=== PATIENT | male | born 1940 | race Caucasian/White ===

== ENCOUNTER 2018-03-06 12:34 | Observation (INO) | payer OTHER ==
[2018-03-06] MEDS ORDERED: HYDROmorphONE/DILAUDID 2 MG/ML INJ IVP ONE (13:03)
--- NOTE | 2018-03-06 13:06 | EDPHY ---
H & P Stated Complaint: back surg 01/12 developed increasing pain at site of surgery Time Seen by Provider: 03/06/18 12:57 HPI/ROS: CHIEF COMPLAINT: Low back pain HISTORY OF PRESENT ILLNESS: Patient is a 77-year-old man with a history of L2- 3 spinal fusion 8 weeks ago with [facility] Dr. Jewell. The patient had recovered well and had minimal pain until when he had sudden increase in pain. It is primarily in his low back at the incision site. No radiation. No weakness or numbness. No bowel or bladder abnormalities. No paresthesias. No fevers. He denies recent trauma. He was told to double his Robaxin and Percocet. He continued to have pain. He was seen at the clinic today by the PA he recommended he come to the ER for x-rays. Severity: Severe Modifying factors: Some improvement with pain medication REVIEW OF SYSTEMS: Constitutional: denies: chills, fever, recent illness, recent injury EENTM: denies: blurred vision, double vision, nose congestion Respiratory: denies: cough, shortness of breath Cardiac: denies: chest pain, irregular heart rate, lightheadedness, palpitations Gastrointestinal/Abdominal: denies: abdominal pain, diarrhea, nausea, vomiting, blood streaked stools Genitourinary: denies: dysuria, frequency, hematuria, pain Musculoskeletal: denies: joint pain, muscle pain Skin: denies: lesions, rash, jaundice, bruising Neurological: denies: headache, numbness, paresthesia, tingling, dizziness, weakness Hematologic/Lymphatic: denies: blood clots, easy bleeding, easy bruising Immunologic/allergic: denies: HIV/AIDS, transplant 10 systems reviewed and negative except as noted EXAM: GENERAL: Well-appearing, well-nourished and in no acute distress. HEAD: Atraumatic, normocephalic. EYES: Pupils equal round and reactive to light, extraocular movements intact, sclera anicteric, conjunctiva are normal. ENT: TMs normal, nares patent, oropharynx clear without exudates. Moist mucous membranes. NECK: Normal range of motion, supple without lymphadenopathy or JVD. LUNGS: Breath sounds clear to auscultation bilaterally and equal. No wheezes rales or rhonchi. HEART: Regular rate and rhythm without murmurs, rubs or gallops. ABDOMEN: Soft, nontender, normoactive bowel sounds. No guarding, no rebound. No masses appreciated. BACK: Pain at the lower aspect incision, no swelling. No erythema. No dehiscence. No tenderness. No CVA tenderness, no spinal tenderness, step-offs or deformities EXTREMITIES: Normal range of motion, no pitting or edema. No clubbing or cyanosis. NEUROLOGICAL: Cranial nerves II through XII grossly intact. Normal speech, normal gait. 5/5 strength, normal movement in all extremities, normal sensation , normal reflexes PSYCH: Normal mood, normal affect. SKIN: Warm, dry, normal turgor, no visible rashes or lesions. Source: Patient Exam Limitations: No limitations - Personal History Current Tetanus Diphtheria and Acellular Pertussis (TDAP): Yes - Medical/Surgical History Hx Asthma: No Hx Chronic Respiratory Disease: No Hx Diabetes: No Hx Cardiac Disease: No Hx Renal Disease: No Hx Cirrhosis: No Hx Alcoholism: No Hx HIV/AIDS: No Hx Splenectomy or Spleen Trauma: No Other PMH: back surg gout - Family History Significant Family History: No pertinent family hx - Social History Smoking Status: Never smoked Alcohol Use: Sober Drug Use: None Constitutional: Initial Vital Signs Temperature (C) 36.8 C 03/06/18 12:49 Heart Rate 87 03/06/18 12:49 Respiratory Rate 18 03/06/18 12:49 Blood Pressure 153/93 H 03/06/18 12:49 O2 Sat (%) 92 03/06/18 12:49 O2 Delivery Mode Room Air Allergies/Adverse Reactions: bacitracin [From Neosporin ([id number])] Allergy (Verified 03/06/18 12:47) neomycin [From Neosporin ([id number])] Allergy (Verified 03/06/18 12:47) oxycodone Allergy (Verified 03/06/18 12:47) Penicillins Allergy (Verified 03/06/18 12:47) polymyxin B [From Neosporin ([id number])] Allergy (Verified 03/06/18 12:47) Home Medications: Medication Instructions Recorded Allopurinol [Allopurinol 300 MG 300 mg PO DAILY 03/06/18 (RX)] Calcium Carbonate [Oyster Shell 500 mg PO DAILY 03/06/18 Calcium 500 mg (*)] Hydrocodone/Acetaminophen [Vicodin 0.5 tab PO Q4H PRN 03/06/18 Hp 10-300 mg Tablet] Levothyroxine [Synthroid 150 mcg 150 mcg PO DAILY 03/06/18 (*)] Methocarbamol [Robaxin 750 mg (*)] 750 mg PO Q8H PRN 03/06/18 Tolterodine Tartrate [Tolterodine 4 mg PO BID 03/06/18 Tartrate ER] Medical Decision Making - Diagnostics Imaging: Discussed imaging studies w/ will call order clerk Radiologist ED Course/Re-evaluation: 1:50 p.m. the patient's x-rays reassuring. He states that he is feeling better after Dilaudid. His pain does not radiate. No weakness or numbness. His told me that couple of weeks ago he did have a wound infection that was treated successfully with antibiotics. I have paged Neurosurgery to discuss further. 3:00 p.m. Care transferred to [facility]. We are awaiting MRI results and neurosurgery consultation. Differential Diagnosis: Partial list of the Differential diagnosis considered include but were not limited to; low back pain, postoperative complication, hematoma, infection and although unlikely based on the history and physical exam, I also considered fracture, foreign body, hardware failure. - Data Points Laboratory Results: Laboratory Results 03/06/18 13:27 03/06/18 13:27 Medications Given: Acetaminophen (Tylenol) 1,000 mg PO Q8HRS LALI Stop: 09/02/18 21:59 Last Admin: 03/07/18 06:33 Dose: 1,000 mg Diazepam (Valium) 5 mg PO Q6HRS PRN PRN Reason: Anxiety, Able to Take PO Stop: 09/02/18 16:13 Last Admin: 03/07/18 03:49 Dose: 5 mg Hydromorphone HCl (Dilaudid) 2 mg PO Q4HRS PRN PRN Reason: Pain, Severe Able to Take PO Stop: 03/16/18 16:12 Last Admin: 03/07/18 03:49 Dose: 2 mg Hydromorphone HCl (Dilaudid) 0.2 mg IVP Q2HRS PRN PRN Reason: Pain, Severe Unable to Take PO Stop: 03/16/18 16:16 Last Admin: 03/06/18 16:29 Dose: 0.2 mg Methocarbamol (Robaxin) 750 mg PO TID LALI Stop: 09/02/18 21:59 Last Admin: 03/06/18 20:06 Dose: 750 mg Senna/Docusate Sodium (Senokot-S) 1 - 2 tab PO BID LALI PRN Reason: Protocol Stop: 09/02/18 20:59 Last Admin: 03/06/18 20:06 Dose: 2 tab Discontinued Medications Hydromorphone HCl (Dilaudid) 1 mg IVP EDNOW ONE Stop: 03/06/18 13:04 Last Admin: 03/06/18 13:32 Dose: 1 mg Sodium Chloride (Ns) 1,000 mls @ 0 mls/hr IV EDNOW ONE; Wide Open PRN Reason: Protocol Stop: 03/06/18 13:49 Last Admin: 03/06/18 14:07 Dose: 1,000 mls Departure - Departure Disposition: [facility] Acute Clinical Impression: Lumbar compression fracture Qualifiers: Encounter type: initial encounter Lumbar vertebra fracture level: L1 Fracture type: closed Qualified Code(s): S32.010A - Wedge compression fracture of first lumbar vertebra, initial encounter for closed fracture Condition: Fair
[2018-03-06 13:42] LABS: PLATELET COUNT 236 10^3/uL (150-400)
[2018-03-06] MEDS ORDERED: NS 1,000 ML IV ONE (13:48)
[2018-03-06 13:49] LABS: INR 1.01 (0.83-1.16); PROTIME(PATIENT) 13.5 SEC (12.0-15.0)
[2018-03-06] MEDS ORDERED: HYDROmorphONE/DILAUDID 1 MG/ML INJ IVP PRN (16:17)
--- NOTE | 2018-03-06 17:10 | GHP ---
DATE OF ADMISSION: 03/06/2018 REASON FOR ADMISSION: Intractable low back pain. HOSPITAL COURSE/HISTORY/MAJOR MEDICAL FINDINGS: The patient is a 77-year-old gentleman who recently underwent an L2-L4 posterior fusion with L2-3 decompression and fusion by Dr. Mason on 01/12/2018. Postoperatively, the patient had been doing well and progressing with therapies until last week when he developed acute low back pain that was intractable to his home [place] and Robaxin. He did call the answering service late on Tuesday night and increased his pain medications, as well as tried heat and ice and these did not relieve his pain. He denies any new leg weakness, any numbness, tingling, or pain. He states that his pre-surgery leg symptoms have resolved. The back pain did improve slightly on Tuesday; however, he is now at the point where he is requiring his rolling walker to move even short distances. He denies any loss of bowel or bladder control. REVIEW OF SYSTEMS: Review of systems is negative other than what is stated in the HPI. Please see for pertinent negatives and pertinent positives. PAST MEDICAL HISTORY: Significant for gout. PAST SURGICAL HISTORY: Significant for right knee replacement, left knee replacement, shoulder surgery, and prior back surgery in 2004. FAMILY HISTORY: Negative for any strokes, aneurysms, or spinal issues. SOCIAL HISTORY: The patient is a former smoker. He quit smoking in 1988. He is and has 1 child. ALLERGIES: To penicillins, oxycodone, and Neosporin. HOME MEDICATIONS: Include [place] 10/325 mg 1 to 2 tablets q.4-6 hours p.r.n. pain, Robaxin 750 mg 1 p.o. q.8 hours p.r.n. pain, allopurinol, indomethacin, levothyroxine, and tolterodine tartrate. PHYSICAL EXAM: VITAL SIGNS: BP 143/84, heart rate is 103, respiratory rate is 92% on room air, temp is 36.8. GENERAL: The patient is in no acute distress, though he is uncomfortable appearing. NEUROLOGIC: The patient is a 5/5 and equal in his bilateral upper and bilateral lower extremities, including his deltoids, triceps, biceps, wrist flexors, extensors, interossei, intrinsic compliance coordinator , iliopsoas, hamstrings, quadriceps, plantar flexion, dorsiflexion, EHL. His sensation is intact in bilateral upper and bilateral lower extremities. SKIN: His incision is clean, dry, and intact. There is no scabbing and is well healed. DIAGNOSTIC REVIEW: Patient underwent a lumbar spine x-ray, which demonstrated intact hardware without any evidence of failure. There is a questionable compression fracture above the patient's surgery at L1. A lumbar MRI was ordered to further evaluate his L1 compression fracture and it appeared to be stable and without any acute edema. ASSESSMENT/PLAN: The patient is a 77-year-old gentleman who recently underwent an L2-L4 posterior fusion with TLIF and decompression at L2-3 who started having new intractable low back pain last week. They have attempted to optimize his pain management in the ER; however, he continues to have ongoing pain. Based on this, we will admit him to the hospital for further observation and pain control. We will do q.4 hours neuro checks. If there is any change in neurologic or motor exam, please notify Neurosurgery. The patient was seen both by Dr. Mason and myself today. /[id number]/MODL MTDD
[2018-03-06] MEDS ORDERED: POLYETHYLENE GLYCOL 3350 17 GM PKT PO PRN (18:14)
[2018-03-06] MEDS ORDERED: LACTULOSE 20 GM/30 ML UDCUP PO PRN (18:14)
[2018-03-06] MEDS ORDERED: MAGNESIUM HYDROXIDE 30 ML UDCUP PO PRN (18:14)
[2018-03-06] MEDS ORDERED: BISACODYL 10 MG SUPP PR PRN (18:14)
[2018-03-06] MEDS: SENNOSIDES/DOCUSATE SODIUM TAB PO SCH (20:06)
[2018-03-06] MEDS: METHOCARBAMOL 750 MG TAB PO SCH (20:06)
[2018-03-06] MEDS: ACETAMINOPHEN 500 MG TAB PO SCH (20:06)
[2018-03-06] MEDS: HYDROmorphONE/DILAUDID 2 MG TAB PO PRN (20:12)
[2018-03-07] MEDS: HYDROmorphONE/DILAUDID 2 MG TAB PO PRN ×5 (03:49→21:16)
[2018-03-07] MEDS: DIAZEPAM 5 MG TAB PO PRN ×2 (03:49→14:27)
[2018-03-07] MEDS: ACETAMINOPHEN 500 MG TAB PO SCH ×3 (06:33→21:15)
[2018-03-07] MEDS: METHOCARBAMOL 750 MG TAB PO SCH ×3 (08:52→21:15)
[2018-03-07] MEDS: SENNOSIDES/DOCUSATE SODIUM TAB PO SCH ×2 (08:54→21:15)
--- NOTE | 2018-03-07 09:48 | NEUSURGPN ---
Assessment/Plan: 77y/o male with acute exacerbation of low back pain and muscle spasms -Pain controlled improved with medication regiment this morning. Will trial this morning and have patient see PT. -Xrays and lumbar MRI negative for new fx or concerning stenosis -Optimize pain management -Discussed with Dr. Mason -Please notify NS with any change in neuro/motor exam Subjective: back/spasms/leg pain improved Objective: NAD A&Ox3 MAEx 4 5/5 and equal in BUE and BLE - Physician Discussed Patient with : [facility] Physical Exam - Vitals, I&O, Labs I and O 03/06/18 03/07/18 03/08/18 05:59 05:59 05:59 Intake Total 1000 300 Output Total 1750 250 Balance -750 50 Weight 120.2 kg Intake: Oral (ml) 300 IV Infused (ml) 1000 Output: Urine (ml) 1750 250 Urinal 1750 250 Other: Intake Quantity Yes Sufficient Number of Voids Toilet 1 1 Urinal 2 Number of Stools Toilet 1 1 Urinal 1 Vital Signs Temp Pulse Resp BP Pulse Ox 36.4 C 75 18 144/83 H 92 03/07/18 07:27 03/07/18 07:27 03/07/18 07:27 03/07/18 07:27 03/07/18 07:27 ICD10 Worksheet Patient Problems: Problems Problem Status Onset Lumbar compression fracture Acute
--- NOTE | 2018-03-07 11:38 | ASMTCMCOM ---
CM Note CM Note Notes: Pt in for back pain, had lumbar fusion and decompression in January 2018. PT rec resumption of home health care. Spoke with pt and family about d/c plan of care, pt feels comfortable going to outpatient PT which is scheduled for next week. Pt spent 12 days at the Center at [facility] and just graduated from home health. ([facility]? pt/ cannot remember the exact name of HC, starts with [facility]). Anticipate pt will d/c when medically stable. No CM d/c needs identified. CM available for changes/needs. Date Signed: 03/07/2018 11:37 AM Electronically Signed By:VIRGINIA Duggan
[2018-03-08] MEDS: DIAZEPAM 5 MG TAB PO PRN (00:31)
[2018-03-08] MEDS: HYDROmorphONE/DILAUDID 2 MG TAB PO PRN ×2 (01:16→06:22)
[2018-03-08] MEDS: ACETAMINOPHEN 500 MG TAB PO SCH (06:22)
--- NOTE | 2018-03-08 07:23 | NEUSURGPN ---
Assessment/Plan: Assessment: 77 y/o male with acute exacerbation of low back pain and muscle spasms. Admitted for pain control Plan: -Pain controlled improved with medications -doing well, walking in room and dressed. Pt is ready for dc home -PT/OT-CPM -Xrays and lumbar MRI negative for new fx or concerning stenosis -Optimize pain management-doing well this am-anxious to be dc home -Discussed with Dr. Mason -Please notify NS with any change in neuro/motor exam -dc written Subjective: Awake and alert. NAD. Eating/drinking and voiding. No f/c/n/v/d. Objective: AAO x 3, PERRLA/EOMI no droop CN 2-12 grossly intact +lt touch 5/5 BUE/BLE = CDI Neuro Check Frequency: per routine Urinary Catheter in Place: No - Physician Discussed Patient with : [facility] Physical Exam - Vitals, I&O, Labs I and O 03/07/18 03/08/18 03/09/18 05:59 05:59 05:59 Intake Total 1000 500 Output Total 1750 650 Balance -750 -150 Weight 120.2 kg Intake: Oral (ml) 500 IV Infused (ml) 1000 Output: Urine (ml) 1750 650 Urinal 1750 650 Other: Intake Quantity Yes Yes Sufficient Number of Voids Toilet 1 3 Urinal 2 1 Number of Stools Toilet 1 1 Urinal 1 Vital Signs Temp Pulse Resp BP Pulse Ox 36.7 C 67 16 125/69 H 93 03/08/18 04:00 03/08/18 04:00 03/08/18 04:00 03/08/18 04:00 03/08/18 04:00 ICD10 Worksheet Patient Problems: Problems Problem Status Onset Lumbar compression fracture Acute
[2018-03-08 07:41] VITALS: BP 117/72
[2018-03-08] MEDS: METHOCARBAMOL 750 MG TAB PO SCH (08:25)
[2018-03-08] MEDS: SENNOSIDES/DOCUSATE SODIUM TAB PO SCH (08:27)
--- NOTE | 2018-03-08 11:13 | ASMTLACE ---
THOMASE Length of stay for Answers: 3 days current admission Acuity / Level of Answers: Yes Care: Did the patient have an inpatient admission? # of Emergency department Answers: 1-2 visits in the last 6 months Score: 7 Date Signed: 03/08/2018 11:13 AM Electronically Signed By:VIRGINIA Duggan
--- NOTE | 2018-03-08 11:14 | ASMTCMCOM ---
CM Note CM Note Notes: Pt medically stable for d/c, no CM d/c needs identified. Date Signed: 03/08/2018 11:13 AM Electronically Signed By:VIRGINIA Duggan
== END 2018-03-08 09:58 | disposition home or self-care (01) ==
LOC: F3N 16:55
PROVIDERS: ADMIT Neurological Surgery; ATTEND Neurological Surgery
DX: M54.5 Low back pain (principal); M62.830 Muscle spasm of back; E86.9 Volume depletion, unspecified; M10.9 Gout, unspecified; Z98.890 Other specified postprocedural states; Z87.891 Personal history of nicotine dependence; Z96.653 Presence of artificial knee joint, bilateral; Z88.0 Allergy status to penicillin; Z98.1 Arthrodesis status
CPT/HCPCS: 72100; 72148; 96361; 96374; 96376; 97161; 97530; 99285; G0378; J1170